=== PATIENT | male | born 1990 | race Caucasian/White ===

== ENCOUNTER 2022-09-02 12:16 | Emergency (ER) | payer OTHER, BC ==
[2022-09-02] MEDS: Diphtheria,Pertussis(Acell),Tetanus Vaccine 0.5 ML Syringe IM ONE (12:51)
== END 2022-09-02 13:15 | disposition home or self-care (01) ==
LOC: LL.ED 12:16
DX: S01.81XA Laceration without foreign body of other part of head, initial encounter (principal); Z23 Encounter for immunization; W29.8XXA Contact with other powered hand tools and household machinery, initial encounter
CPT/HCPCS: 12011; 90471; 90715; 99282-25; 99283